=== PATIENT | female | born 1990 | race African-American/Black ===

== ENCOUNTER 2019-11-25 22:32 | Emergency (ER) | payer BC ==
--- NOTE | 2019-11-25 22:36 | PDOC ---
History of Present Illness - General Chief Complaint: Asthma Stated Complaint: CHEST CONGESTION Time Seen by Provider: 11/25/19 22:36 - History of Present Illness Initial Comments: 11/25/19 23:23 This 29-year-old woman with a history of asthma presents with chest tightness/ wheezing and pain on inspiration for the last 1-2 days. Patient has had mild nonproductive cough without shortness of breath over the last day. She noted pain on inspiration (anteriorly and posteriorly) yesterday. No shortness of breath noted. Patient states that she was diagnosed with strep pharyngitis 10 days ago (contracted from her boyfriend) and has just finished her course of amoxicillin. She denies new throat pain, fever/chills, nasal congestion or discharge. Most recent flareup requiring oral steroids was 09/28/2018. Patient had 1 hospital admission for her asthma in 2013. No history of intubation for asthma. No risk factors for acute thromboembolic phenomenon. No known allergies Non-smoker; no daily alcohol or other recreational drug use Past History - Past Medical History Allergies/Adverse Reactions: Allergies Allergy/AdvReac Type Severity Reaction Status Date / Time No Known Allergies Allergy Unverified 11/25/19 22:34 Home Medications: Ambulatory Orders Albuterol 0.083% Nebulizer Dee [Ventolin 0.083%] 1 neb NEB QID PRN 11/25/19 Albuterol 0.083% Nebulizer Dee [Ventolin 0.083% Nebulizer Soln -] 1 neb NEB Q6H PRN #30 vial 11/26/19 predniSONE [Deltasone -] 40 mg PO DAILY #10 tablet 11/26/19 Review of Systems - Review of Systems Able to Perform ROS?: Yes Comments:: 12 point review of systems is negative except for what is noted in the history of present illness *Physical Exam - Physical Exam GENERAL: Adult female, alert and oriented x3, speaking full sentences and in no acute distress HEAD: Normal with no signs of trauma. EYES: PERRLA, EOMI, sclera anicteric, conjunctiva clear. ENT: Ears normal, nares patent, oropharynx clear without exudates. Moist mucous membranes. NECK: Normal range of motion, supple without lymphadenopathy, JVD, or masses. LUNGS: Breath sounds equal, clear to auscultation bilaterally. No wheezes, rubs or crackles. Breathing shallowly CHEST WALL: No crepitus, tenderness, step-offs HEART:Regular rate and rhythm, normal S1 and S2 without murmur, rub or gallop. ABDOMEN:.normal bowel sounds No guarding,tenderness or rebound.No masses No distention. EXTREMITIES: Normal range of motion, no edema. No clubbing or cyanosis. No erythema, or tenderness. NEUROLOGICAL: Cranial nerves II through XII grossly intact. Normal speech. No focal neurological deficits. MUSCULOSKELETAL: Back non-tender to palpation, no CVA tenderness SKIN: Warm, Dry, normal turgor, no rashes or lesions noted. Medical Decision Making - Medical Decision Making As noted above, this 29-year-old woman with approximately 15-year history of asthma presents with 2 days of wheezing, mild dry cough and pain on inspiration. No fever or chills, productive cough or other symptoms reported. Patient has just finished 10-day course of amoxicillin for strep pharyngitis. Patient has been using her albuterol nebulizer at home with inadequate relief of her symptoms. Exam as noted with shallow breathing and scattered expiratory wheezing. There is no chest wall tenderness noted. Clinical presentation consistent with asthmatic bronchitis. DuoNeb nebulizer treatment given. Reassessment after nebulizer treatment reveals persistent wheezing with only fair air exchange. Since patient has been using albuterol multiple times today and DuoNeb treatment now has not significantly improved her symptoms or objective findings on exam, 125 mg of Solu-Medrol IV administered.. Additional albuterol nebulizer treatment ordered. After Solu-Medrol IV and second nebulizer treatment, reexamination reveals better air exchange and resolution of wheezing. Patient subjectively feels much better. Patient will be discharged with instructions to rest and drink plenty of fluids ; she is scheduled to work for the next 2 days and will be given documentation to stay home from work. Prednisone 40 mg daily for the next 5 days has been prescribed as well as supply of albuterol nebulizer solution (patient states that her supply of the solution is getting low). She should return to the emergency room if she has recurrent persistent wheezing, shortness of breath, high fever or severe chest pain. She should follow-up with her general medical doctor within the next week Discharge - Discharge Information Problems reviewed: Yes Clinical Impression/Diagnosis: Exacerbation of asthma Qualifiers: Asthma severity: moderate Asthma persistence: unspecified Qualified Code(s): J45.901 - Unspecified asthma with (acute) exacerbation Condition: Stable Disposition: HOME - Additional Discharge Information Prescriptions: Albuterol 0.083% Nebulizer Dee [Ventolin 0.083% Nebulizer Soln -] 1 neb NEB Q6H PRN #30 vial PRN Reason: Wheezing predniSONE [Deltasone -] 40 mg PO DAILY #10 tablet - Follow up/Referral Referrals: Amy Brown MD [Primary Care Provider] - - Patient Discharge Instructions Patient Printed Discharge Instructions: DI for Asthma -- Adult Additional Instructions: Rest; drink plenty of fluids No work until Thursday, 11/28 Prednisone 40 mg daily for the next 5 days; take with food Albuterol nebulizer 4 times a day as needed for wheezing Return to ER if you have high fever, shortness of breath or persistent wheezing Follow-up with your general doctor within the next week - Post Discharge Activity Work/Back to School Note: Back to Work
[2019-11-25 22:48] VITALS: BP 130/94; PULSE 90; TEMP 98.3; BMI 28.2
[2019-11-25] MEDS ORDERED: ALBUTEROL SO4 2.5/IPRATROPIUM 0.5 INH SOL 3 ML VIAL.NEB. NEB ONE ×2 (23:21→23:23)
[2019-11-25] MEDS ORDERED: methylPREDNISolone NA SUCC 125 MG/2 ML VIAL IVPUSH ONE (23:49)
[2019-11-25] MEDS ORDERED: ALBUTEROL SO4 0.5 % INH SOLN 2.5 MG/0.5 ML VIAL.NEB. NEB ONE (23:50)
[2019-11-25] MEDS ORDERED: methylPREDNISolone NA SUCC 125 MG/2 ML VIAL ONE (23:52)
[2019-11-25] MEDS ORDERED: ALBUTEROL SO4 0.083% IH SOL 2.5 MG/3 ML VIAL.NEB. NEB ONE (23:53)
[2019-11-26] MEDS ORDERED: ALBUTEROL SO4 0.083% IH SOL 2.5 MG/3 ML VIAL.NEB. NEB ONE (00:55)
== END 2019-11-26 01:07 | disposition home or self-care (01) ==
LOC: FER 22:32
PROC: 3E0F7GC Introduction of Other Therapeutic Substance into Respiratory Tract, Via Natural or Artificial Opening (ICD-10-PCS; principal; 2019-11-25)
PROC: 3E033GC Introduction of Other Therapeutic Substance into Peripheral Vein, Percutaneous Approach (ICD-10-PCS; 2019-11-25)
DX: J45.901 Unspecified asthma with (acute) exacerbation (principal)
CPT/HCPCS: 99285-25